=== PATIENT | female | born 1960 | race African-American/Black ===

== ENCOUNTER 2019-06-25 14:25 | Emergency (ER) | payer BC, OTHER ==
--- OUTSIDE RECORDS SUMMARY | 2019-06-25 14:28 | XMS REPORT | Continuity of Care Document ---
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 04/14/2018 [facility] [place] (current) use of [place] aspirin Morbid (severe) 04/14/2018 [facility] obesity due to [place] excess calories Syncope and 04/14/2018 [facility] [place] collapse [place] Gout, unspecified 04/14/2018 [place] Essential 04/14/2018 [place] (primary) [place] hypertension Body mass index 04/14/2018 [facility] (BMI) 60.0-69.9, [place] adult Type 2 diabetes 04/14/2018 [facility] mellitus without [place] complications Medications Medication Details Route Status Patient Ordering Order Source Instructions Provider Date Hydrochlorothiazide See Active 25 MG Oral Tablet Instructions 2018 Medical , # 30 tab, Group Refill(s) 2, TAKE 1 TABLET BY MOUTH EVERY MORNING, Pharmacy: [facility]/pharmacy #[id number] Hydrochlorothiazide 25 mg=1 tab, Active 25 MG Oral Tablet PO, QAM, # 2018 Medical 90 tab, 2 Group Refill(s), Pharmacy: [id number] Hydrochlorothiazide 25 mg=1 tab, No Longer 25 MG Oral Tablet PO, QAM, X Active 2018 Medical 30 day, # 30 Group tab, 6 Refill(s), Pharmacy: [facility]/pharmacy #[id number] carvedilol 3.125 mg, Inactive [place] Route: PO, 2018 [place] Drug form: TAB, Q12H, Dosing Weight 153.182, kg, Start date: 01/06/18 21:00:00 CDT, Duration: 30 day, Stop date: 02/05/18 9:00:00 CDT Aspirin 81 MG Enteric 81 mg=1 tab, No Longer [place] Coated Tablet PO, Daily, # Active 2017 [place] 30 tab, 3 Refill(s), Pharmacy: [facility]/pharmacy #[id number] Colchicine 0.6 MG 0.6 mg, 1 Inactive [place] Oral Tablet tab, Route: 2017 [place] PO, Drug form: TAB, Daily, Dosing Weight 153.182, kg, Start date: 01/06/18 9:00:00 CDT, Duration: 30 day, Stop date: 02/04/18 9:00:00 CDT Saline Flush 0.9% 10 ml, No Longer [place] Route: IVP, Active 2017 Drug Form: INJ, Dosing Weight 152.727, kg, Q12H, Start date: 01/05/18 21:00:00 CDT, Duration: 30 day, Stop date: 02/04/18 9:00:00 CDTNotes: (Same as: BD Posiflush) Colchicine 0.6 MG 0.6 mg=1 Active [place] Oral Tablet tab, PO, 2017 [place] Daily, at the first sign of a gout flare followed by 0.6 mg one hour later, 0 Refill(s) carvedilol 12.5 mg 12.5 mg=1 No Longer [place] oral tablet tab, PO, Active 2017 [place] Q12H, # 60 tab, 0 Refill(s) spironolactone 25 mg 25 mg=1 tab, No Longer [place] oral tablet PO, BID, # Active 2017 [place] 180 tab, 0 Refill(s) Saline Flush 0.9% 10 ml, No Longer [place] Route: IVP, 2017 Drug Form: INJ, Dosing Weight 152.727, kg, PRN, PRN Line Flush, Start date: 01/05/18 16:10:00 CDT, Duration: 30 day, Stop date: 02/04/18 16:09:00 CDTNotes: (Same as: BD Posiflush) Ondansetron 4 mg, 2 mL, No Longer [place] Route: IVP, 2017 Drug form: INJ, Q6H, Dosing Weight 152.727, kg, PRN Nausea & Vomiting, Start date: 01/05/18 16:08:00 CDT, Duration: 30 day, Stop date: 02/04/18 16:07:00 CDTNotes: (Same as: Maricruz) MEDICATION WASTE Product Size: 4 mg Product Wasted: ___ mg Acetaminophen 650 mg, 2 No Longer [place] tab, Route: Active 2017 [place] PO, Drug form: TAB, Q4H, Dosing Weight 152.727, kg, PRN Pain 1-3/Temp > 100.4 F, Start date: 01/05/18 16:08:00 CDT, Duration: 30 day, Stop date: 02/04/18 16:07:00 CDTNotes: Do not exceed 4 gm/day. (Same as: Tylenol) Ketorolac 30 mg, Inactive [place] Route: IVP, 2017 [facility] Drug form: INJ, ONCE, Dosing Weight 152.727, kg, Priority: STAT, Start date: 01/05/18 15:48:00 CDT, Stop date: 01/05/18 15:48:00 CDT Saline Flush 0.9% 10 mL, No Longer [place] Route: IVP, Active 2017 [facility] Drug Form: INJ, Dosing Weight 152.727, kg, PRN, PRN Line Flush, Start date: 01/05/18 12:26:00 CDT, Duration: 30 day, Stop date: 02/04/18 12:25:00 CDTNotes: (Same as: BD Posiflush) Allergies, Adverse Reactions, Alerts Substance Category Reaction Severity Reaction Status Date Comments Source type Reported sulfa Assertion Drug Active hives, drugs<sup>1 allergy itching, Medical </sup> swelling Group iodine Assertion Allergy to Drug Active sulfonamides allergy Medical (disorder) Group Immunizations No Data Provided for This Section Results Order Name Results Value Reference Date Interpretation Comments Source Range CHEM PANEL eGFR 74 01/06 Result Comment: The [place] eGFR is [place] calculated using the CKD-EPI formula. In most young, healthy individuals the eGFR will be >90 mL/min/1.73m2 . The eGFR declines with age. An eGFR of 60-89 may be normal in some populations, particularly the elderly, for whom the CKD-EPI formula has not been extensively validated. Use of the eGFR is not recommended in the following populations:< br/>
Eboni viduals with unstable creatinine concentration s, including patients and those with serious co-morbid conditions.<b r/>
Patie nts with extremes in muscle mass or diet.

The data above are obtained from the National Kidney Disease Education Program (NKDEP) which additionally recommends that when the eGFR is used in patients with extremes of body mass index for purposes of drug dosing, the eGFR should be multiplied by the estimated BMI. CHEM PANEL Calcium Lvl 8.6 8.5 - 10.5 01/06 [place] CHEM PANEL AGAP 12.0 10.0 - 01/06 [facility] 20.0 [place] CHEM PANEL CO2 25 24 - 32 01/06 [place] CHEM PANEL Chloride Lvl 105 95 - 109 01/06 [place] CHEM PANEL Potassium Lvl 4.0 3.5 - 5.1 01/06 [place] CHEM PANEL Glucose Lvl 111 70 - 99 01/06 [place] CHEM PANEL BUN 21 7 - 22 01/06 [place] CHEM PANEL Creatinine 0.98 0.50 - 01/06 MH Lvl 1.40 [place] CHEM PANEL Sodium Lvl 138 135 - 145 01/06 [place] HEMATOLOGY Segs 51.8 45.0 - 01/06 MH 75.0 [place] HEMATOLOGY Segs-Bands # 2.2 1.5 - 8.1 01/06 [place] HEMATOLOGY Basophils 0.2 0.0 - 1.0 01/06 [place] HEMATOLOGY Lymphocytes 40.9 20.0 - 01/06 MH 40.0 [place] HEMATOLOGY Eosinophils 0.6 0.0 - 4.0 01/06 [place] HEMATOLOGY Monocytes 6.5 2.0 - 12.0 01/06 [place] HEMATOLOGY Anisocyte 1+ None Seen 01/06 *ABN* /2017 [facility] (01/06/18 5:18 AM) Land HEMATOLOGY Basophils # 0.0 0.0 - 0.2 01/06 [place] HEMATOLOGY Lymphocytes # 1.7 1.0 - 5.5 01/06 [place] HEMATOLOGY Eosinophils # 0.0 0.0 - 0.5 01/06 [place] HEMATOLOGY Monocytes # 0.3 0.0 - 0.8 01/06 [place] HEMATOLOGY MPV 10.1 7.4 - 10.4 01/06 [place] HEMATOLOGY Hct 31.5 36.0 - 01/06 MH 48.0 [place] HEMATOLOGY Hgb 9.9 12.0 - 01/06 MH 16.0 [place] HEMATOLOGY MCHC 31.4 32.0 - 01/06 MH 36.0 [place] HEMATOLOGY MCH 23.9 27.0 - 01/06 MH 31.0 [place] HEMATOLOGY Platelet 281 133 - 450 01/06 [place] HEMATOLOGY RDW 20.7 11.5 - 01/06 MH 14.5 [place] HEMATOLOGY MCV 76.2 80.0 - 01/06 MH 98.0 [place] HEMATOLOGY RBC 4.14 4.20 - 01/06 MH 5.40 [place] HEMATOLOGY WBC 4.2 3.7 - 10.4 01/06 [place] CARDIAC Troponin-I <0.02 0.00 - 01/06 [facility] 0. [place] CARDIAC Total CK 63 12 - 191 01/06 [facility] [place] CARDIAC CK MB 0.6 0.5 - 3.6 01/05 [facility] /2017 [place] CARDIAC CK MB Index 0.5 0.0 - 2.5 01/05 [facility] [place] CARDIAC Troponin-I <0.02 0.00 - 01/05 [facility] 0. [place] CARDIAC Total CK 125 12 - 191 01/05 [facility] [place] CARDIAC BNP 65 <=100 01/05 [facility] pg/mL [place] URINE AND UA <=1.0 mg/dL 0.1 - 1.0 01/05 [facility] Urobilinogen [place] URINE AND UA Hyph Yeast Occasional None Seen 01/05 [facility] *ABN* /2017 [facility] (01/05/18 12:42 PM) [place] URINE AND UA Hyal Cast 9 0 - 2 01/05 [facility] [place] URINE AND UA Mucus Moderate None Seen 01/05 [facility] /LPF /LPF [place] URINE AND UA Bacteria Occasional None Seen 01/05 [facility] /HPF /HPF /2017 [place] URINE AND UA RBC 2 0 - 2 01/05 [facility] [place] URINE AND UA Blood Negative Negative 01/05 [facility] (01/05/18 12:42 PM) [place] URINE AND UA Leuk Est Trace Negative 01/05 [facility] *ABN* [place] (01/05/18 12:42 PM) [place] URINE AND UA Nitrite Negative Negative 01/05 [facility] (01/05/18 12:42 PM) [place] URINE AND UA Bili Negative Negative 01/05 [facility] *NA* [place] (01/05/18 12:42 PM) [place] URINE AND UA Ketones Negative Negative 01/05 [facility] mg/dL mg/dL [place] URINE AND UA WBC 5 0 - 5 01/05 [facility] [place] URINE AND UA Sq Epi Many /LPF Few /LPF 01/05 [facility] /2017 [place] URINE AND UA Spec Grav 1.021 <=1.030 01/05 [facility] [place] URINE AND UA Turbidity Marked Clear 01/05 [facility] *ABN* /2017 [place] (01/05/18 12:42 PM) [place] URINE AND UA Color Dark Yellow Yellow 01/05 [facility] *NA* [place] (01/05/18 12:42 PM) [place] URINE AND UA Glucose Negative Negative 01/05 [facility] mg/dL mg/dL [place] URINE AND UA Protein 30 mg/dL Negative 01/05 [facility] mg/dL /2017 [place] URINE AND UA pH 5.0 5.0 - 8.0 01/05 [facility] [place] Culture: 10,000 - 01/05 Urine 50,000 /2017 [facility] CFU/mL [place] CHEM PANEL eGFR 55 01/05 Result Comment: The [place] eGFR is [place] calculated using the CKD-EPI formula. In most young, healthy individuals the eGFR will be >90 mL/min/1.73m2 . The eGFR declines with age. An eGFR of 60-89 may be normal in some populations, particularly the elderly, for whom the CKD-EPI formula has not been extensively validated. Use of the eGFR is not recommended in the following populations:< br/>
Eboni viduals with unstable creatinine concentration s, including patients and those with serious co-morbid conditions.<b r/>
Patie nts with extremes in muscle mass or diet.

The data above are obtained from the National Kidney Disease Education Program (NKDEP) which additionally recommends that when the eGFR is used in patients with extremes of body mass index for purposes of drug dosing, the eGFR should be multiplied by the estimated BMI. CHEM PANEL Bili Total 0.4 0.2 - 1.3 01/05 [place] CHEM PANEL Alk Phos 91 39 - 136 01/05 [place] CHEM PANEL ALT 21 0 - 65 01/05 [place] CHEM PANEL AST 21 0 - 37 01/05 [place] CHEM PANEL Albumin Lvl 3.4 3.5 - 5.0 01/05 [place] CHEM PANEL Chloride Lvl 104 95 - 109 01/05 [place] CHEM PANEL Total Protein 8.4 6.4 - 8.4 01/05 [place] CHEM PANEL Calcium Lvl 8.6 8.5 - 10.5 01/05 [place] CHEM PANEL CO2 28 24 - 32 01/05 [place] CHEM PANEL Glucose Lvl 82 70 - 99 01/05 [place] CHEM PANEL Creatinine 1.11 0.50 - 01/05 MH Lvl 1.40 [place] CHEM PANEL Sodium Lvl 138 135 - 145 01/05 [place] CHEM PANEL Potassium Lvl 4.0 3.5 - 5.1 01/05 [place] CHEM PANEL BUN 15 7 - 22 01/05 [place] CHEM PANEL AGAP 10.0 10.0 - 01/05 MH 20.0 [place] CHEM PANEL A/G Ratio 0.7 0.7 - 1.6 01/05 [place] CHEM PANEL Globulin 5.0 2.7 - 4.2 01/05 [place] CHEM PANEL B/C Ratio 14 6 - 25 01/05 [place] HEMATOLOGY MCHC 31.0 32.0 - 01/05 MH 36.0 [place] HEMATOLOGY MCH 23.6 27.0 - 01/05 MH 31.0 [place] HEMATOLOGY MCV 76.4 80.0 - 01/05 [facility] 98.0 [place] HEMATOLOGY RBC 4.50 4.20 - 01/05 MH 5.40 /2017 [place] HEMATOLOGY Hct 34.4 36.0 - 01/05 MH 48.0 [place] HEMATOLOGY Hgb 10.6 12.0 - 01/05 MH 16.0 [place] HEMATOLOGY MPV 10.9 7.4 - 10.4 01/05 [place] HEMATOLOGY Platelet 328 133 - 450 01/05 [place] HEMATOLOGY RDW 20.8 11.5 - 01/05 14.5 [place] HEMATOLOGY WBC 6.9 3.7 - 10.4 01/05 [place] HEMATOLOGY Anisocyte 1+ None Seen 01/05 *ABN* /2017 [place] (01/05/18 12:31 PM) Land HEMATOLOGY Eosinophils # 0.0 0.0 - 0.5 01/05 [place] HEMATOLOGY Basophils # 0.0 0.0 - 0.2 01/05 [place] HEMATOLOGY Monocytes # 0.5 0.0 - 0.8 01/05 [place] HEMATOLOGY Lymphocytes # 1.8 1.0 - 5.5 01/05 [place] HEMATOLOGY Segs-Bands # 4.6 1.5 - 8.1 01/05 [place] HEMATOLOGY Monocytes 6.7 2.0 - 12.0 01/05 [place] HEMATOLOGY Lymphocytes 26.2 20.0 - 01/05 40.0 [place] HEMATOLOGY Basophils 0.3 0.0 - 1.0 01/05 [place] HEMATOLOGY Eosinophils 0.2 0.0 - 4.0 01/05 [place] HEMATOLOGY Segs 66.6 45.0 - 01/05 75.0 [place] Pathology Reports No Data Provided for This Section Diagnostic Reports Report Value Date Source Brain wo contrast MRI 01/05/2018 [facility] Sex: Female. : 1960. Technique: Sagittal, axial and coronal sequences through the brain with T1, T2, FLAIR, GRE and diffusion weighting on the high field magnet. Clinical History: Syncope - NO. Comparison studies: CT scan 01/05/2018 at 1239. The diffusion weighted exam shows no evidence for restricted diffusion or acute infarct. There is mild periventricular white matter intensity including in the periatrial regions. Could not exclude early demyelinating disease. Other vasculopathy possibility but not acute without evidence for diffusion changes. There is no intracranial mass or mass effect. There is no midline shift. There is no extra-axial fluid collection. Ventricles, subarachnoid spaces and sulci are normal. There is no evidence for hydrocephalus. The posterior fossa is intact. There is normally maintained signal void in the major vasculature. The sella and suprasellar cistern are normal. Paranasal sinuses are aerated. Orbits are normal and symmetric. IMPRESSION: 1. Mild white matter signal intensities, correlate with MRI when disease versus chronic ischemia including vasculitis. Brain wo contrast CT PATIENT NAME: JENNIFER CASH 01/05/2018 [place] : 1960; Age: 57 years y/o Female MR: [id number] STUDY: Brain wo contrast CT 01/05/2018 12:26 PM CDT ORDERING PHYSICIAN: Sally Pederson CLINICAL INDICATION: - syncope; COMPARISON: None TECHNIQUE: Noncontrast images of the brain are obtained from the skull base to the vertex. Axial, sagittal, and coronal images are interpreted. DLP: 559 mGy -cm This exam was performed according to our departmental dose-optimization protocol, which includes automated exposure control, adjustment of the mA and/ or kV according to patient size and/or use of iterative reconstruction technique. FINDINGS: BRAIN PARENCHYMA: There is no evidence of cerebral edema, mass, mass effect, hemorrhage, or recent cortical infarct. The brain volume is age appropriate. The garcia-white distinction is maintained. CEREBELLOPONTINE REGIONS AND SKULL BASE: The cerebellopontine angles appear unremarkable. No skull base abnormality is seen. VENTRICLES/SULCI/CISTERNS: The ventricles are normal in size and configuration. The basal cisterns are patent. ORBITS, VISUALIZED PARANASAL SINUSES AND MASTOIDS: Paranasal sinuses are clear. The mastoid air cells are clear. No orbital pathology is seen. IMPRESSION: No acute intracranial findings Chest 1view DX SINGLE VIEW CHEST X-RAY. 01/05/2018 12:26 PM CDT 01/05/2018 [place] INDICATION: - syncope TECHNIQUE: Single frontal view of the chest was performed. COMPARISON: None FINDINGS: There is mild central venous congestion. No significant effusions. No evidence of pneumothorax. The cardiomediastinal silhouette is mildly enlarged. Osseous structures show no significant finding. The visualized abdomen is unremarkable. IMPRESSION: Mild central venous congestion with mild cardiomegaly. Consultation Notes No Data Provided for This Section Discharge Summaries No Data Provided for This Section History and Physicals No Data Provided for This Section Vital Signs Vital Sign Value Date Comments Source Height 172.72 cm 01/14/2018 [facility] Heart Rate 79 01/14/2018 [facility] Systolic (mm Hg) 154 01/14/2018 [facility] Diastolic (mm Hg) 98 01/14/2018 [facility] Temperature Oral (F) 98.1 F 01/06/2018 [facility] [place] Heart Rate 73 01/06/2018 [facility] [place] Respitory Rate 18 01/06/2018 [facility] [place] Systolic (mm Hg) 145 01/06/2018 [facility] [place] Diastolic (mm Hg) 77 01/06/2018 [place] Temperature Oral (F) 98.0 F 01/06/2018 [place] Heart Rate 68 01/06/2018 [facility] [place] Systolic (mm Hg) 145 01/06/2018 [facility] [place] Diastolic (mm Hg) 81 01/06/2018 [place] Respitory Rate 18 01/06/2018 [place] Respitory Rate 18 01/06/2018 [place] Temperature Oral (F) 98 F 01/06/2018 [place] Heart Rate 72 01/06/2018 [facility] [place] Systolic (mm Hg) 134 01/06/2018 [facility] [place] Diastolic (mm Hg) 85 01/06/2018 [place] BMI Calculated 51.35 01/05/2018 [place] Height 172.72 cm 01/05/2018 [place] Weight 153.182 01/05/2018 [place] Weight 152.727 01/05/2018 [place] Encounters Location Location Encounter Encounter Reason Attending ADM DC Status Source Details Type Number For Provider Date Date Visit [facility] [id number] No 01/05 01/06 [place] [facility] [place] [facility] [id number] MAJID JULIAN 01/14 [facility] Outpatient [id number] Majid Julian 01/14 01/15 Cardiology [facility] [place] [facility] Outpatient [id number] MAJID JULIAN 02/10 [facility] [place] [facility] Ambulatory [id number] Majid Julian 02/10 02/10 Cardiology [facility] [place] [facility] Phone [id number] 03/15 03/17 Cardiology Message [facility] [place] [facility] Phone [phone] 06/07 06/09 Cardiology Message [facility] [place] [facility] Procedures No Data Provided for This Section Assessment and Plan Assessment and Plan Date Source Extracted from:Title: History and Physical 01/06/2018 [place] Author: Twyla Maciel MD Date: 01/05/18 57-year-old female 1. Acutesyncopal episode. Etiology remains unclear. Vessels vagal versus orthostatichypotension. Patient has multiple risk factors including hypertensionobesityandhyperlipidemiawhich puts her at risk of developing TIA or stroke. CT of the headwas unremarkable. Will proceed with MRI of thebrain to rule outacute intracranial pathology or ischemic changes. Cardiology consultation be requested to further a ssist with evaluation. Will monitor on telemetry overnight. 2. Hypertension,blood pressure fairly controlled here. Will resume her home medicationand use IV hydralazineas needed Morbid obesity, BMI61.4. Patient has been counseled 3. Diabetes mellitus type 2, will start patient on sliding scale insulin and monitor Accu-Cheks. Continue tight glycemic control 4. Chronic lower back pain. Continue present measures. Plan of Care No Data Provided for This Section Social History Social History Date Source Social History TypeResponse 01/05/2018 Medical [facility] Substance Abuse Use: None. Alcohol Never Smoking Status Never smoker; Previous treatment: None; Ready to change: No; Concerns about tobacco use in household: No; Exposure to Tobacco Smoke None; Cigarette Smoking Last 365 Days No; Reg Smoking Cessation Counseling No entered on: 01/14/18 Social History TypeResponse 01/05/2018 [facility] Substance Abuse Use: None. Alcohol Never Smoking Status Never smoker; Previous treatment: None; Ready to change: No; Concerns about tobacco use in household: No; Exposure to Tobacco Smoke None; Cigarette Smoking Last 365 Days No; Reg Smoking Cessation Counseling No entered on: 01/14/18 Family History No Data Provided for This Section Advance Directives No Data Provided for This Section Functional Status No Data Provided for This Section
--- OUTSIDE RECORDS SUMMARY | 2019-06-25 14:28 | XMS REPORT | Summary of Care ---
:1960 Author Organization [facility] Cardiology [place] Address [address], [address] [place] [address] Encounter HQ [place]_gordo(FIN) [id number] Date(s): 06/07/18 - 06/08/18 [facility] Cardiology [place] [address], [address] [place] [address] Vital Signs No data available for this section Problem List Condition Effective Dates Status Health Status Informant Morbid obesity(Confirmed) Active Allergies, Adverse Reactions, Alerts Substance Reaction Severity Status sulfa drugs1 Active iodine Allergy to sulpha drugs Active 1hives, itching, swelling Medications hydrochlorothiazide 25 mg oral tablet See Instructions, # 30 tab, Refill(s) 2, TAKE 1 TABLET BY MOUTH EVERY MORNING, Pharmacy: [facility]/pharmacy #[id number] Start Date: 06/07/18 Status: Ordered Results No data available for this section Immunizations No data available for this section Procedures No data available for this section Social History Social History Type Response Substance Abuse Use: None. Alcohol Never Smoking Status Never smoker; Previous treatment: None; Ready to change: No; Concerns about tobacco use in household: No; Exposure to Tobacco Smoke None; Cigarette Smoking Last 365 Days No; Reg Smoking Cessation Counseling No entered on: 01/14/18 Assessment and Plan No data available for this section
--- OUTSIDE RECORDS SUMMARY | 2019-06-25 14:28 | XMS REPORT | Summary of Care ---
:1960 Author Organization [facility] Cardiology [place] Address [address] [place] [address], [address] [place] [address] Encounter HQ Lucinda(FIN) [id number] Date(s): 03/15/18 - 03/16/18 [facility] Cardiology [place] [address] [address], [address] [place] [address] Vital Signs No data available for this section Problem List Condition Effective Dates Status Health Status Informant Morbid obesity(Confirmed) Active Allergies, Adverse Reactions, Alerts Substance Reaction Severity Status sulfa drugs1 Active iodine Allergy to sulpha drugs Active 1hives, itching, swelling Medications hydrochlorothiazide 25 mg oral tablet 25 mg=1 tab, PO, QAM, # 90 tab, 2 Refill(s), Pharmacy: [facility]/pharmacy #[id number] Start Date: 03/16/18 Status: Ordered Results No data available for [...]
--- OUTSIDE RECORDS SUMMARY | 2019-06-25 14:28 | XMS REPORT | Summary of Care ---
:1960 Author Organization [facility] Cardiology [place] Address [address] [place] [address]- Encounter HQ Herminiar_gordo(FIN) [id number] Date(s): 02/10/18 - 02/10/18 [facility] Cardiology [place] [address] [place] [phone] Attending Physician: Alexis Antony MD Vital Signs No data available for this section Problem List Condition Effective Dates Status Health Status Informant Morbid obesity(Confirmed) Active Allergies, Adverse Reactions, Alerts Substance Reaction Severity Status sulfa drugs1 Active iodine Allergy to sulpha drugs Active 1hives, itching, swelling Medications No data available for this section Results No data available for this section [...]
--- OUTSIDE RECORDS SUMMARY | 2019-06-25 14:29 | XMS REPORT ---
:1960 Author Organization [facility] Address [address] [place] [address] Dr. Jaime [address] [place] [id number] Care Team Providers Name Role Phone Unavailable Unavailable Unavailable Problems This patient has no known problems. Allergies, Adverse Reactions, Alerts This patient has no known allergies or adverse reactions. Medications This patient has no known medications.
--- OUTSIDE RECORDS SUMMARY | 2019-06-25 14:29 | XMS REPORT | Summary of Care ---
:1960 Author Organization [facility] [place] [facility] [place] [address] [place] [phone] Encounter HQ Lucinda(FIN) [id number] Date(s): 01/14/18 - 01/14/18 [facility] Cardiology [address] [address] [phone] Discharge Disposition: Home or Self Care Attending Physician: Alexis Antony MD Vital Signs Most recent to oldest [Reference Range]: 1 Height 172.72 cm (01/14/18 11:23 AM) Blood Pressure [90-140/60-90 mmHg] 154/98 mmHg *HI* (01/14/18 11:23 AM) Peripheral Pulse Rate [60-100 bpm] 79 bpm (01/14/18 11:23 AM) Problem List Condition Effective Dates Status Health Status Informant Morbid obesity(Confirmed) Active Allergies, Adverse Reactions, Alerts Substance Reaction Severity Status sulfa drugs1 Active iodine Allergy to sulpha drugs Active 1hives, itching, swelling Medications hydrochlorothiazide 25 mg oral tablet 25 mg=1 tab, PO, QAM, X 30 day, # 30 tab, 6 Refill(s), Pharmacy: [facility]/pharmacy # [id number] Start Date: 01/14/18 Stop Date: 03/16/18 Status: Completed Results No data available for this section [...]
--- OUTSIDE RECORDS SUMMARY | 2019-06-25 14:29 | XMS REPORT | Summary of Care ---
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 (Final) - Hypotension, unspecified (Final) - 01/12/18 Morbid (severe) obesity due to excess calories (Final) - Syncope and collapse (Final) - Gout, unspecified (Final) - Essential (primary) hypertension (Final) - Body mass index (BMI) 60.0-69.9, adult (Final) - Type 2 diabetes mellitus without complications (Final) - Discharge Disposition: Home or Self Care Attending Physician: Twyla Maciel MD Admitting Physician: Twyla Maciel MD Vital Signs Most recent to oldest 1 2 3 [Reference Range]: Height 172.72 cm (01/05/18 6:11 PM) Temperature Oral [96.4-99.1 98.1 DegF 98.0 DegF 98 DegF DegF] (01/06/18 11:58 AM) (01/06/18 7:53 AM) (01/06/18 3:51 AM) Blood Pressure [90-140/60-90 145/77 mmHg 145/81 mmHg 134/85 mmHg mmHg] *HI* *HI* (01/06/18 3:51 AM) (01/06/18 11:58 AM) (01/06/18 7:53 AM) Respiratory Rate [14-20 18 BRMIN 18 BRMIN 18 BRMIN BRMIN] (01/06/18 11:58 AM) (01/06/18 7:53 AM) (01/06/18 3:51 AM) Peripheral Pulse Rate [60-100 73 bpm 68 bpm 72 bpm bpm] (01/06/18 11:58 AM) (01/06/18 7:53 AM) (01/06/18 3:51 AM) Weight 153.182 kg 152.727 kg (01/05/18 6:11 PM) (01/05/18 11:34 AM) Body Mass Index 51.35 m2 (01/05/18 6:11 PM) Problem List Condition Effective Dates Status Health Status Informant Morbid obesity(Confirmed) Active Allergies, Adverse Reactions, Alerts Substance Reaction Severity Status sulfa drugs1 Active iodine Allergy to sulpha drugs Active 1hives, itching, swelling Medications acetaminophen 650 mg, 2 tab, Route: PO, Drug form: TAB, Q4H, Dosing Weight 152.727, kg, PRN Pain 1-3/Temp > 100.4 F, Start date: 01/05/18 16:08:00 CDT, Duration: 30 day , Stop date: 02/04/18 16:07:00 CDT Notes: Do not exceed 4 gm/day. (Same as: Tylenol) Start Date: 01/05/18 Stop Date: 01/06/18 Status: Discontinuedaspirin 81 mg tablet, enteric coated 81 mg=1 tab, PO, Daily, # 30 tab, 3 Refill(s), Pharmacy: [facility]/pharmacy #[id number] Start Date: 01/06/18 Stop Date: 01/14/18 Status: Discontinuedcarvedilol 3.125 mg, Route: PO, Drug form: TAB, Q12H, Dosing Weight 153.182, kg, Start date : 01/06/18 21:00:00 CDT, Duration: 30 day, Stop date: 02/05/18 9:00:00 CDT Start Date: 01/06/18 Stop Date: 01/06/18 Status: Canceledcarvedilol 12.5 mg oral tablet 12.5 mg=1 tab, PO, Q12H, # 60 tab, 0 Refill(s) Start Date: 01/05/18 Stop Date: 01/06/18 Status: Discontinuedcolchicine 0.6 mg oral tablet 0.6 mg, 1 tab, Route: PO, Drug form: TAB, Daily, Dosing Weight 153.182, kg, Start date: 01/06/18 9:00:00 CDT, Duration: 30 day, Stop date: 02/04/18 9:00:00 CDT Start Date: 01/06/18 Stop Date: 01/06/18 Status: Discontinuedcolchicine 0.6 mg oral tablet 0.6 mg=1 tab, PO, Daily, at the first sign of a gout flare followed by 0.6 mg one hour later, 0 Refill(s) Start Date: 01/05/18 Status: OrderedketOROLAC 30 mg, Route: IVP, Drug form: INJ, ONCE, Dosing Weight 152.727, kg, Priority: STAT, Start date: 01/05/18 15:48:00 CDT, Stop date: 01/05/18 15:48:00 CDT Start Date: 01/05/18 Stop Date: 01/05/18 Status: Completedondansetron 4 mg, 2 mL, Route: IVP, Drug form: INJ, Q6H, Dosing Weight 152.727, kg, PRN Nausea & Vomiting, Start date: 01/05/18 16:08:00 CDT, Duration: 30 day, Stop date: 02/04/18 16:07:00 CDT Notes: (Same as: Mariefran) MEDICATION WASTE Product Size: 4 mgProduct Wasted: ___ mg Start Date: 01/05/18 Stop Date: 01/06/18 Status: DiscontinuedSaline Flush 0.9% 10 mL, Route: IVP, Drug Form: INJ, Dosing Weight 152.727, kg, PRN, PRN Line Flush, Start date: 01/05/18 12:26:00 CDT, Duration: 30 day, Stop date: 02/04/18 12:25:00 CDT Notes: (Same as: BD Posiflush) Start Date: 01/05/18 Stop Date: 01/06/18 Status: DiscontinuedSaline Flush 0.9% 10 ml, Route: IVP, Drug Form: INJ, Dosing Weight 152.727, kg, Q12H, Start date: 01/05/18 21:00:00 CDT, Duration: 30 day, Stop date: 02/04/18 9:00:00 CDT Notes: (Same as: BD Posiflush) Start Date: 01/05/18 Stop Date: 01/06/18 Status: DiscontinuedSaline Flush 0.9% 10 ml, Route: IVP, Drug Form: INJ, Dosing Weight 152.727, kg, PRN, PRN Line Flush, Start date: 01/05/18 16:10:00 CDT, Duration: 30 day, Stop date: 02/04/18 16:09:00 CDT Notes: (Same as: BD Posiflush) Start Date: 01/05/18 Stop Date: 01/06/18 Status: Discontinuedspironolactone 25 mg oral tablet 25 mg=1 tab, PO, BID, # 180 tab, 0 Refill(s) Start Date: 01/05/18 Stop Date: 01/06/18 Status: Discontinued Results ELECTROLYTES Most recent to oldest [Reference Range]: 1 2 Sodium Lvl [135-145 mEq/L] 138 mEq/L 138 mEq/L (01/06/18 5:18 AM) (01/05/18 12:31 PM) Potassium Lvl [3.5-5.1 mEq/L] 4.0 mEq/L 4.0 mEq/L (01/06/18 5:18 AM) (01/05/18 12:31 PM) Chloride Lvl [95-109 mEq/L] 105 mEq/L 104 mEq/L (01/06/18 5:18 AM) (01/05/18 12:31 PM) CO2 [24-32 mEq/L] 25 mEq/L 28 mEq/L (01/06/18 5:18 AM) (01/05/18 12:31 PM) AGAP [10.0-20.0 mEq/L] 12.0 mEq/L 10.0 mEq/L (01/06/18 5:18 AM) (01/05/18 12:31 PM) CHEM PANEL Most recent to oldest [Reference Range]: 1 2 Creatinine Lvl [0.50-1.40 mg/dL] 0.98 mg/dL 1.11 mg/dL (01/06/18 5:18 AM) (01/05/18 12:31 PM) eGFR 74 mL/min/1.73m2 1 55 mL/min/1.73m2 2 *NA* *NA* (01/06/18 5:18 AM) (01/05/18 12:31 PM) BUN [7-22 mg/dL] 21 mg/dL 15 mg/dL (01/06/18 5:18 AM) (01/05/18 12:31 PM) B/C Ratio [6-25] 14 (01/05/18 12:31 PM) Glucose Lvl [70-99 mg/dL] 111 mg/dL 82 mg/dL *HI* (01/05/18 12:31 PM) (01/06/18 5:18 AM) Total Protein [6.4-8.4 g/dL] 8.4 g/dL (01/05/18:31 PM) Albumin Lvl [3.5-5.0 g/dL] 3.4 g/dL *LOW* (01/05/18: PM) Globulin [2.7-4.2 g/dL] 5.0 g/dL *HI* (01/05/18 12:31 PM) A/G Ratio [0.7-1.6] 0.7 (01/05/18 12:31 PM) Calcium Lvl [8.5-10.5 mg/dL] 8.6 mg/dL 8.6 mg/dL (01/06/18 5:18 AM) (01/05/18 12:31 PM) ALT [0-65 unit/L] 21 unit/L (01/05/18 12:31 PM) AST [0-37 unit/L] 21 unit/L (01/05/18 12:31 PM) Alk Phos [39-136 unit/L] 91 unit/L (01/05/18 12:31 PM) Bili Total [0.2-1.3 mg/dL] 0.4 mg/dL (01/05/18 12:31 PM) 1Result Comment: The eGFR is calculated using the CKD-EPI formula. In most young , healthy individualsthe eGFR will be >90 mL/min/1.73m2. The eGFR declines with age. An eGFR of 60-89 may be normal insome populations, particularly the elderly, for whom the CKD-EPI formula has not been extensively validated. Use of the eGFR is not recommended in the following populations: Individuals with unstable creatinine concentrations, including patients and those with serious co-morbid conditions. Patients with extremes in muscle mass or diet. The data above are obtained from the National Kidney Disease Education Program ( NKDEP) which additionally recommends that when the eGFR is used in patients with extremes of body mass index for purposesof drug dosing, the eGFR should be multiplied by the estimated BMI.2Result Comment: The eGFR is calculated using the CKD-EPI formula. In most young, healthy individualsthe eGFR will be >90 mL/min/1.73m2. The eGFR declines with age. An eGFR of 60-89 may be normal insome populations, particularly the elderly, for whom the CKD-EPI formula has not been extensively validated. Use of the eGFR is not recommended in the following populations: Individuals with unstable creatinine concentrations, including patients and those with serious co-morbid conditions. Patients with extremes in muscle mass or diet. The data above are obtained from the National Kidney Disease Education Program ( NKDEP) which additionally recommends that when the eGFR is used in patients with extremes of body mass index for purposesof drug dosing, the eGFR should be multiplied by the estimated BMI.CARDIAC ENZYMES Most recent to oldest [Reference Range]: 1 2 Total CK [12-191 unit/L] 63 unit/L 125 unit/L (01/05/18 11:39 PM) (01/05/18 6:35 PM) CK MB [0.5-3.6 ng/mL] 0.6 ng/mL (01/05/18 6:35 PM) CK MB Index [0.0-2.5] 0.5 (01/05/18 6:35 PM) Troponin-I [0.00-0.40 ng/mL] <0.02 ng/mL <0.02 ng/mL (01/05/18 11:39 PM) (01/05/18 6:35 PM) BNP [<=100 pg/mL] 65 pg/mL (01/05/18 2:28 PM) URINE AND STOOL Most recent to oldest [Reference Range]: 1 2 UA Turbidity [Clear] Marked *ABN* (01/05/18 12:42 PM) UA Color [Yellow] Dark Yellow *NA* (01/05/18 12:42 PM) UA pH [5.0-8.0] 5.0 (01/05/18 12:42 PM) UA Spec Grav [<=1.030] 1.021 (01/05/18 12:42 PM) UA Glucose [Negative mg/dL] Negative mg/dL *NA* (01/05/18 12:42 PM) UA Blood [Negative] Negative (01/05/18 12:42 PM) UA Ketones [Negative mg/dL] Negative mg/dL *NA* (01/05/18 12:42 PM) UA Protein [Negative mg/dL] 30 mg/dL *ABN* (01/05/18 12:42 PM) UA Urobilinogen [0.1-1.0 mg/dL] <=1.0 mg/dL *NA* (01/05/18 12:42 PM) UA Bili [Negative] Negative *NA* (01/05/18 12:42 PM) UA Leuk Est [Negative] Trace *ABN* (01/05/18 12:42 PM) UA Nitrite [Negative] Negative (01/05/18 12:42 PM) UA WBC [0-5 /HPF] 5 /HPF (01/05/18 12:42 PM) UA RBC [0-2 /HPF] 2 /HPF (01/05/18 12:42 PM) UA Bacteria [None Seen /HPF] Occasional /HPF *NA* (01/05/18 12:42 PM) UA Sq Epi [Few /LPF] Many /LPF *ABN* (01/05/18 12:42 PM) UA Hyal Cast [0-2 /LPF] 9 /LPF *HI* (01/05/18 12:42 PM) UA Mucus [None Seen /LPF] Moderate /LPF *ABN* (01/05/18 12:42 PM) UA Hyph Yeast [None Seen] Occasional *ABN* (01/05/18 12:42 PM) HEMATOLOGY Most recent to oldest [Reference Range]: 1 2 WBC [3.7-10.4 K/CMM] 4.2 K/CMM 6.9 K/CMM (01/06/18 5:18 AM) (01/05/18 12:31 PM) RBC [4.20-5.40 M/CMM] 4.14 M/CMM 4.50 M/CMM *LOW* (01/05/18 12:31 PM) (01/06/18:18 AM) Hgb [12.0-16.0 g/dL] 9.9 g/dL 10.6 g/dL *LOW* *LOW* (01/06/18 5:18 AM) (01/05/18 12:31 PM) Hct [36.0-48.0 %] 31.5 % 34.4 % *LOW* *LOW* (01/06/18:18 AM) (01/05/18:31 PM) MCV [80.0-98.0 fL] 76.2 fL 76.4 fL *LOW* *LOW* (01/06/18:18 AM) (01/05/18 PM) MCH [27.0-31.0 pg] 23.9 pg 23.6 pg *LOW* *LOW* (01/06/18:18 AM) (01/05/18:31 PM) MCHC [32.0-36.0 g/dL] 31.4 g/dL 31.0 g/dL *LOW* *LOW* (01/06/18:18 AM) (01/05/18:31 PM) RDW [11.5-14.5 %] 20.7 % 20.8 % *HI* *HI* (01/06/18:18 AM) (01/05/18:31 PM) MPV [7.4-10.4 fL] 10.1 fL 10.9 fL (01/06/18:18 AM) *HI* (01/05/18:31 PM) Platelet [133-450 K/CMM] 281 K/CMM 328 K/CMM (01/06/18 5:18 AM) (01/05/18 12:31 PM) Segs [45.0-75.0 %] 51.8 % 66.6 % (01/06/18 5:18 AM) (01/05/18 12:31 PM) Lymphocytes [20.0-40.0 %] 40.9 % 26.2 % *HI* (3/21/18 12:31 PM) (01/06/18 5:18 AM) Monocytes [2.0-12.0 %] 6.5 % 6.7 % (01/06/18 5:18 AM) (01/05/18 12:31 PM) Eosinophils [0.0-4.0 %] 0.6 % 0.2 % (01/06/18 5:18 AM) (01/05/18 12:31 PM) Basophils [0.0-1.0 %] 0.2 % 0.3 % (01/06/18 5:18 AM) (01/05/18 12:31 PM) Segs-Bands # [1.5-8.1 K/CMM] 2.2 K/CMM 4.6 K/CMM (01/06/18 5:18 AM) (01/05/18 12:31 PM) Lymphocytes # [1.0-5.5 K/CMM] 1.7 K/CMM 1.8 K/CMM (01/06/18 5:18 AM) (01/05/18 12:31 PM) Monocytes # [0.0-0.8 K/CMM] 0.3 K/CMM 0.5 K/CMM (01/06/18 5:18 AM) (01/05/18 12:31 PM) Eosinophils # [0.0-0.5 K/CMM] 0.0 K/CMM 0.0 K/CMM (01/06/18 5:18 AM) (01/05/18 12:31 PM) Basophils # [0.0-0.2 K/CMM] 0.0 K/CMM 0.0 K/CMM (01/06/18 5:18 AM) (01/05/18 12:31 PM) Anisocyte [None Seen] 1+ 1+ *ABN* *ABN* (01/06/18 5:18 AM) (01/05/18 12:31 PM) Microbiology Reports TEST:Culture: Urine STATUS:Auth (Verified) BODY SITE: SOURCE:Urine, Clean Catch COLLECTED DATE/TIME:01/05/18 12:42 PMFINAL REPORT10,000 - 50,000 CFU/mL Skin Keren Immunizations No data available for this section [...] No entered on: 01/14/18 Assessment and Plan Extracted from: Title: History and Physical Author: Twyla Maciel MD Date: 01/05/18 57-year-old female 1. Acutesyncopal episode. Etiology remains unclear. Vessels vagal versus orthostatichypotension. Patient has multiple risk factors including hypertensionobesityandhyperlipidemiawhich puts her at risk ofdeveloping TIA or stroke. CT of the headwas unremarkable. Will proceed with MRI of thebrain to rule outacute intracranial pathology or ischemic changes. Cardiology cons ultation be requested to further assist with evaluation. Will monitor on telemetry overnight. 2. Hypertension,blood pressure fairly controlled here. Will resume her home medicationand use IV hydralazineas needed Morbid obesity, BMI61.4. Patient has been counseled 3. Diabetes mellitus type 2, will start patient on sliding scale insulin and monitor Accu-Cheks. Continue tight glycemic control 4. Chronic lower back pain. Continue present measures.
[2019-06-25] MEDS ORDERED: FENTANYL CITR 100 MCG/2 ML ONE (15:31)
--- NOTE | 2019-06-25 16:49 | EDPHYS ---
Physician Documentation [facility] Name: Elizabeth Madrigal Age: 58 yrs Sex: Female : 1960 Arrival Date: 06/25/2019 Time: 14:28 Bed 24 Private MD: ED Physician Jesus Manuel Bueno HPI: 06/25 23:56 This 58 yrs old Black Female presents to ER via Ambulatory with complaints of Feet snw Swelling - Gout. 23:56 The patient presents with pain, that is acute. The complaints affect the left foot and snw lateral aspect of left foot. Context: The problem was sustained at home, resulted from a chronic condition, the patient can partially bear weight, the patient is able to ambulate, can ambulate using a cane. Onset: The symptoms/episode began/occurred suddenly, 2 day(s) ago, and became persistent. Associated signs and symptoms: The patient has no apparent associated signs or symptoms. Severity of symptoms: At their worst the symptoms were moderate. The patient has experienced similar episodes in the past, multiple times, and the symptoms today are exactly the same. It is unknown whether or not the patient has recently seen a physician. Historical: - Allergies: 14:58 Iodine; ss 14:58 Sulfa (Sulfonamide Antibiotics); ss - PMHx: 14:58 Diverticulitis; Gout; ss - PSHx: 14:58 ; Tubal ligation; Tonsillectomy; ss - Immunization history:: Adult Immunizations up to date. - Social history:: Smoking status: Patient/guardian denies using tobacco. - Ebola Screening: : Patient denies exposure to infectious person Patient denies travel to an Ebola-affected area in the 21 days before illness onset. ROS: 23:55 Constitutional: Negative for fever, chills, and weight loss, Eyes: Negative for injury, snw pain, redness, and discharge, ENT: Negative for injury, pain, and discharge, Neck: Negative for injury, pain, and swelling, Cardiovascular: Negative for chest pain, palpitations, and edema, Respiratory: Negative for shortness of breath, cough, wheezing, and pleuritic chest pain, Abdomen/GI: Negative for abdominal pain, nausea, vomiting, diarrhea, and constipation, Back: Negative for injury and pain, : Negative for injury, bleeding, discharge, and swelling, Skin: Negative for injury, rash, and discoloration, Neuro: Negative for headache, weakness, numbness, tingling, and seizure, Psych: Negative for depression, anxiety, suicide ideation, homicidal ideation, and hallucinations. 23:55 MS/extremity: Positive for pain, of the left foot and lateral aspect of left foot. Exam: 22:51 Constitutional: This is a well developed, well nourished patient who is awake, alert, snw and in no acute distress. Head/Face: Normocephalic, atraumatic. Eyes: Pupils equal round and reactive to light, extra-ocular motions intact. Lids and lashes normal. Conjunctiva and sclera are non-icteric and not injected. Cornea within normal limits. Periorbital areas with no swelling, redness, or edema. ENT: Nares patent. No nasal discharge, no septal abnormalities noted. Tympanic membranes are normal and external auditory canals are clear. Oropharynx with no redness, swelling, or masses, exudates, or evidence of obstruction, uvula midline. Mucous membranes moist. Neck: Trachea midline, no thyromegaly or masses palpated, and no cervical lymphadenopathy. Supple, full range of motion without nuchal rigidity, or vertebral point tenderness. No Meningismus. Chest/axilla: Normal chest wall appearance and motion. Nontender with no deformity. No lesions are appreciated. Cardiovascular: Regular rate and rhythm with a normal S1 and S2. No gallops, murmurs, or rubs. Normal PMI, no JVD. No pulse deficits. Respiratory: Lungs have equal breath sounds bilaterally, clear to auscultation and percussion. No rales, rhonchi or wheezes noted. No increased work of breathing, no retractions or nasal flaring. Abdomen/GI: Soft, non-tender, with normal bowel sounds. No distension or tympany. No guarding or rebound. No evidence of tenderness throughout. Back: No spinal tenderness. No costovertebral tenderness. Full range of motion. Skin: Warm, dry with normal turgor. Normal color with no rashes, no lesions, and no evidence of cellulitis. Neuro: Awake and alert, GCS 15, oriented to person, place, time, and situation. Cranial nerves II-XII grossly intact. Motor strength 5/5 in all extremities. Sensory grossly intact. Cerebellar exam normal. Normal gait. Psych: Awake, alert, with orientation to person, place and time. Behavior, mood, and affect are within normal limits. 22:51 Musculoskeletal/extremity: Extremities: grossly normal except: noted in the lateral aspect of left foot and anterior aspect of left ankle: pain, swelling, tenderness, ROM: no acute changes, Circulation is intact in all extremities. Sensation intact. Vital Signs: 14:54 BP 141 / 90; Pulse 83; Resp 16; Temp 98.3(O); Pulse Ox 98% on R/A; Weight 140.61 kg; ss Height 5 ft. 8 in. (172.72 cm); Pain 9/10; 15:47 Pain 6/10; rv 17:36 BP 138 / 86; Pulse 88; Resp 15; Pulse Ox 97% on R/A; rv 14:54 Body Mass Index 47.13 (140.61 kg, 172.72 cm) ss MDM: 15:05 Patient medically screened. snw 22:54 Data reviewed: vital signs, nurses notes. Data interpreted: Pulse oximetry: on room air snw is 97 %. Interpretation: normal. Counseling: I had a detailed discussion with the patient and/or guardian regarding: the historical points, exam findings, and any diagnostic results supporting the discharge/admit diagnosis, radiology results, the need for outpatient follow up, to return to the emergency department if symptoms worsen or persist or if there are any questions or concerns that arise at home. Response to treatment: the patient's symptoms have markedly improved after treatment. Special discussion: Based on the history and exam findings, there is no indication for further emergent testing or inpatient evaluation. I discussed with the patient/guardian the need to see the orthopedic surgeon for further evaluation of the symptoms. I discussed with the patient/guardian the need to see the primary care provider for further evaluation of the symptoms. 06/25 15:11 Order name: US Extremity Venous Unilateral Ltd; Complete Time: 17:14 snw 06/25 16:48 Order name: Post-op shoe; Complete Time: 17:35 snw Administered Medications: 15:32 Drug: fentaNYL (PF) 50 mcg {Note: rass 0.} Route: IM; Site: right deltoid; rv 15:47 Follow up: Pain 6/10 Adult; Response: No adverse reaction; Marked relief of symptoms; rv Pain is decreased 15:48 Follow up: Response: RASS: Alert and Calm (0) rv Disposition: 06/26 07:09 Co-signature as Attending Physician, Jesus Manuel Bueno MD. rn Disposition: 06/25/19 16:49 Discharged to Home. Impression: Gout. - Condition is Stable. - Discharge Instructions: Gout, Low-Purine Diet. - Prescriptions for Tylenol- Codeine #3 300-30 mg Oral Tablet - take 2 tablets by ORAL route every 6 hours As needed; 12 tablet. - Medication Reconciliation Form, Thank You Letter, Antibiotic Education, Prescription Opioid Use, Work release form form. - Follow up: Private Physician; When: 2 - 3 days; Reason: Recheck today's complaints, Continuance of care, Re-evaluation by your physician. Follow up: Emergency Department; When: As needed; Reason: Worsening of condition. Signatures: Dispatcher [employer] EDKS Radha Cook, EDGE [employer]PP[employer]-C ED[employer]PP[employer]-Csnw Jesus Manuel Bueno MD MD rn Smirch, Shelby, RN RN ss Vicente, Ronaldo, RN RN rv Corrections: (The following items were deleted from the chart) 06/25 17:37 16:49 06/25/2019 16:49 Discharged to Home. Impression: Gout. Condition is Stable. Forms rv are Medication Reconciliation Form, Thank You Letter, Antibiotic Education, Prescription Opioid Use. Follow up: Private Physician; When: 2 - 3 days; Reason: Recheck today's complaints, Continuance of care, Re-evaluation by your physician. Follow up: Emergency Department; When: As needed; Reason: Worsening of condition. snw
--- NOTE | 2019-06-25 16:49 | ER ---
Nurse's Notes [facility] Name: Elizabeth Madrigal Age: 58 yrs Sex: Female : 1960 Arrival Date: 06/25/2019 Time: 14:28 Bed 24 Private MD: Diagnosis: Gout Presentation: 06/25 14:54 Presenting complaint: Patient states: swelling and warmth to L foot that began 3 days ss ago. Patient has a history of gout and believes this is a flare up. Transition of care: patient was not received from another setting of care. Onset of symptoms was June 22, 2019. Risk Assessment: Do you want to hurt yourself or someone else? Patient reports no desire to harm self or others. Initial Sepsis Screen: Does the patient meet any 2 criteria? No. Patient's initial sepsis screen is negative. Does the patient have a suspected source of infection? No. Patient's initial sepsis screen is negative. Care prior to arrival: None. 14:54 Method Of Arrival: Ambulatory ss 14:54 Acuity: BRIANNA 3 ss Historical: - Allergies: 14:58 Iodine; ss 14:58 Sulfa (Sulfonamide Antibiotics); ss - PMHx: 14:58 Diverticulitis; Gout; ss - PSHx: 14:58 ; Tubal ligation; Tonsillectomy; ss - Immunization history:: Adult Immunizations up to date. - Social history:: Smoking status: Patient/guardian denies using tobacco. - Ebola Screening: : Patient denies exposure to infectious person Patient denies travel to an Ebola-affected area in the 21 days before illness onset. Screenin:48 Abuse screen: Denies threats or abuse. Denies injuries from another. Nutritional rv screening: No deficits noted. Tuberculosis screening: No symptoms or risk factors identified. Fall Risk None identified. Assessment: 15:20 General: Appears in no apparent distress. comfortable, Behavior is calm, cooperative. rv Pain: Complains of pain in left foot Pain currently is 8 out of 10 on a pain scale. 15:20 Neuro: Level of Consciousness is awake, alert, obeys commands, Oriented to person, rv place, time, situation. Cardiovascular: Patient's skin is warm and dry. Respiratory: Airway is patent. GI: No signs and/or symptoms were reported involving the gastrointestinal system. : No signs and/or symptoms were reported regarding the genitourinary system. EENT: No signs and/or symptoms were reported regarding the EENT system. Derm: No signs and/or symptoms reported regarding the dermatologic system. Skin is intact. Musculoskeletal: Swelling present in left foot Reports pain in left foot. 15:49 Reassessment: Patient appears in no apparent distress at this time. Patient and/or rv family updated on plan of care and expected duration. Pain level reassessed. Patient is alert, oriented x 3, equal unlabored respirations, skin warm/dry/pink. awaiting Ultrasound. Patient states feeling better. Patient states symptoms have improved. Vital Signs: 14:54 BP 141 / 90; Pulse 83; Resp 16; Temp 98.3(O); Pulse Ox 98% on R/A; Weight 140.61 kg; ss Height 5 ft. 8 in. (172.72 cm); Pain 9/10; 15:47 Pain 6/10; rv 17:36 BP 138 / 86; Pulse 88; Resp 15; Pulse Ox 97% on R/A; rv 14:54 Body Mass Index 47.13 (140.61 kg, 172.72 cm) ED Course: 14:28 Patient arrived in ED. as 14:54 Arm band placed on right wrist. ss 14:56 Triage completed. ss 14:58 [facility]C [facility]. snw 14:58 Jesus Manuel Bueno MD is Attending Physician. snw 15:22 Jaylan Richard RN is Primary Nurse. rv 15:49 Patient has correct armband on for positive identification. Bed in low position. Call rv light in reach. Side rails up X 1. Adult w/ patient. Pulse ox on. NIBP on. 17:02 US Extremity Venous Unilateral Ltd In Process Unspecified. EDMS 17:07 Ultrasound completed. Notified CUSTOMER SERVICE ENGINEER/PA radha w prelim. sg3 17:36 No provider procedures requiring assistance completed. Patient did not have IV access rv during this emergency room visit. Administered Medications: 15:32 Drug: fentaNYL (PF) 50 mcg {Note: rass 0.} Route: IM; Site: right deltoid; rv 15:47 Follow up: Pain 6/10 Adult; Response: No adverse reaction; Marked relief of symptoms; rv Pain is decreased 15:48 Follow up: Response: RASS: Alert and Calm (0) rv Outcome: 16:49 Discharge ordered by . vinayak 17:36 Discharged to home via wheelchair, with family. rv 17:36 Condition: good 17:36 Discharge instructions given to patient, family, Instructed on discharge instructions, follow up and referral plans. medication usage, Demonstrated understanding of instructions, follow-up care, medications, Prescriptions given X 1. 17:37 Patient left the ED. rv Signatures: Dispatcher [employer] EDRI Radha Cook, BUTTON PUNCHER-C BUTTON PUNCHER-Meme Edouard Shelby, RN RN Gabi Vicente sg3 Jaylan Richard, RN RN rv
--- NOTE | 2019-06-25 17:10 | RAD REPORT ---
EXAM DESCRIPTION: US - Extremity Venous Uni Ltd - 06/25/2019 5:01 pm CLINICAL HISTORY: SWELLING Leg swelling and edema. COMPARISON: <Comparisons> FINDINGS: Left lower extremity venous system was interrogated with Doppler technique. Normal flow, c ompressibility and augmentation was noted. There is no DVT present. IMPRESSION: No evidence of left lower extremity deep venous thrombosis.
[2019-06-25 20:16] VITALS: TEMP 98.3
[2019-06-25 20:19] VITALS: BP 138/86; O2SAT 97
== END 2019-06-25 17:37 | disposition home or self-care (01) ==
LOC: ER 14:25
DX: M10.9 Gout, unspecified (principal); Z88.2 Allergy status to sulfonamides; Z91.048 Other nonmedicinal substance allergy status
CPT/HCPCS: 93971; 96372; 99284; J3010

== ENCOUNTER 2021-01-23 07:05 | Day surgery (SDC) | payer OTHER ==
[2021-01-23] MEDS ORDERED: Ringers Lactate 1,000 ML IV ONE (07:38)
[2021-01-23] MEDS ORDERED: propofoL 200 MG/20 ML VIAL IV ONE ×2 (09:01)
[2021-01-23] MEDS ORDERED: LIDOCAINE 1% MPF 5 ML VIAL ONE (09:01)
--- NOTE | 2021-01-23 09:02 | ENDO RPT ---
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 TOPICAL ANESTHETIC: none CONSENT: The patient understands the risks and benefits of the procedure and understands that these risks include, but are not limited to: sedation, allergic reaction, infection, perforation and/or bleeding. Alternative means of evaluation and treatment include, among others: physical exam, x-rays, and/or surgical intervention. The patient elects to proceed with this endoscopic procedure. DESCRIPTION OF PROCEDURE: During intra-op preparation period all mechanical medical equipment was checked for proper function. Hand hygiene and appropriate measures for infection prevention was taken. Procedure, possible complications, and alternatives including but not limited to the possibility of bleeding, perforation, tear, infection, sepsis, need for surgery, need for blood transfusion, and anesthesia related complications were explained to the patient. After the risks, benefits and alternatives of the procedure were thoroughly explained, Informed consent was verified, confirmed and timeout was successfully executed by the treatment team. The patient was placed in the left lateral position. The patient was anesthetized with topical anesthesia. Through the anesthetized oropharyngeal area, the scope was passed without any difficulty. The EG-2990i ([id number]) endoscope was introduced through the mouth and advanced to the third portion of the duodenum. Retroflexed views revealed no abnormalities. The gastroscope was then slowly withdrawn and removed. LA Class A esophagitis was found in the lower esophagus. Mild gastritis was found in the antrum. Multiple biopsies were obtained and sent to pathology. Small bowel biopsies obtained with history of iron deficiency anemia. ADVERSE EVENTS: There were no complications. IMPRESSIONS: 1. LA class A esophagitis in the lower esophagus 2. Mild gastritis in the antrum, s/p biopsies 3. Small bowel biopsies obtained with history of iron deficiency anemia RECOMMENDATIONS: 1. await biopsy results 2. acid suppression therapy REPEAT EXAM: Rogelio Rolle Dr eSigned: Rogelio Rolle Dr 01/23/2021 9:02 AM cc: Jared Geronimo CPT CODES: ICD9 CODES: PATIENT NAME: Elizabeth Madrigal MR#: [id number]
--- NOTE | 2021-01-23 09:04 | ENDO RPT ---
[address], [address] EGD PROCEDURE REPORT EXAM DATE: 01/23/2021 PATIENT NAME: Elizabeth Madrigal MR#: [id number] BIRTHDATE: 1960 ATTENDING: Rogelio Rolle Dr STATUS: outpatient ADVENTURE GUIDE: Shani Quinones RN and Rena Anna RN INDICATIONS: The patient is a 60 yr old Female here for an EGD due to iron deficiency anemia, dyspepsia, family history of stomach cancer in father PROCEDURE PERFORMED: EGD with biopsy MEDICATIONS: Per Anesthesia. TOPICAL ANESTHETIC: none CONSENT: The patient understands the risks and benefits of the procedure and understands that these risks include, but are not limited to: sedation, allergic reaction, infection, perforation and/or bleeding. Alternative means of evaluation and treatment include, among others: physical exam, x-rays, and/or surgical intervention. The patient elects to proceed with this endoscopic procedure. DESCRIPTION OF PROCEDURE: During intra-op preparation period all mechanical medical equipment was checked for proper function. Hand hygiene and appropriate measures for infection prevention was taken. Procedure, possible complications, and alternatives including but not limited to the possibility of bleeding, perforation, tear, infection, sepsis, need for surgery, need for blood transfusion, and anesthesia related complications were explained to the patient. After the risks, benefits and alternatives of the procedure were thoroughly explained, Informed consent was verified, confirmed and timeout was successfully executed by the treatment team. The patient was placed in the left lateral position. The patient was anesthetized with topical anesthesia. Through the anesthetized oropharyngeal area, the scope was passed without any difficulty. The EG-2990i ([id number]) endoscope was introduced through the mouth and advanced to the third portion of the duodenum. Retroflexed views revealed no abnormalities. The gastroscope was then slowly withdrawn and removed. LA Class A esophagitis was found in the lower esophagus. Mild gastritis was found in the antrum. Multiple biopsies were obtained and sent to pathology. Small bowel biopsies obtained with history of iron deficiency anemia. ADVERSE EVENTS: There were no complications. IMPRESSIONS: 1. LA class A esophagitis in the lower esophagus 2. Mild gastritis in the antrum, s/p biopsies 3. Small bowel biopsies obtained with history of iron deficiency anemia RECOMMENDATIONS: 1. await biopsy results 2. acid suppression therapy REPEAT EXAM: Rogelio Rolle Dr eSigned: Rogelio Rolle Dr 01/23/2021 9:04 AM Revised: 01/23/2021 9:04 AM cc: Jared Geronimo CPT CODES: ICD9 CODES: PATIENT NAME: Maryann Madrigalyce Tj MR#: [id number]
--- NOTE | 2021-01-23 09:33 | ENDO RPT ---
[address], [address] COLONOSCOPY PROCEDURE REPORT EXAM DATE: 01/23/2021 PATIENT NAME: Elizabeth Madrigal MR #: [id number] BIRTHDATE: 1960 ATTENDING: Rogelio Rolle Dr STATUS: outpatient PSYCHIATRIC ASSISTANT: Shani Quinones RN and Rena Anna RN INDICATIONS: The patient is a 60 yr old Female here for a colonoscopy due to iron deficiency anemia, personal history of colon polyps, change in bowel habits, constipation, diverticulitis, abnormal CT of abdomen, and abdominal pain PROCEDURE PERFORMED: Colonoscopy MEDICATIONS: Per Anesthesia. ESTIMATED BLOOD LOSS: None CONSENT: The patient understands the risks and benefits of the procedure and understands that these risks include, but are not limited to: sedation, allergic reaction, infection, perforation and/or bleeding. Alternative means of evaluation and treatment include, among others: physical exam, x-rays, and/or surgical intervention. The patient elects to proceed with this endoscopic procedure. DESCRIPTION OF PROCEDURE: During intra-op preparation period all mechanical medical equipment was checked for proper function. Hand hygiene and appropriate measures for infection prevention was taken. Procedure, possible complications, alternatives including, but not limited to possibility of bleeding, perforation, tear, infection, sepsis, need for surgery, need for blood transfusion, were explained to the patient. After the risks, benefits and alternatives of the procedure were thoroughly explained, Informed consent was verified, confirmed and timeout was successfully executed by the treatment team. The patient was placed in the left lateral position. A digital rectal exam was performed and revealed no abnormalities of the rectum. After appropriate level of anesthesia, the scope was passed. The EG-2990i ([id number]) and EC-3890Li ([id number]) endoscope was introduced through the anus and advanced to the terminal ileum which was intubated for a short distance. The quality of the prep was good. The instrument was then slowly withdrawn as the colon was fully examined. Scope withdrawal time was 8 minutes. COLON FINDINGS: Mild diverticulosis was noted throughout the entire examined colon. No bleeding was noted from the diverticulosis. Small internal hemorrhoids were found. Retroflexed views revealed small hemorrhoids. The scope was then completely withdrawn from the patient and the procedure terminated. ADVERSE EVENTS: There were no complications. IMPRESSIONS: 1. Mild diverticulosis throughout the entire examined colon 2. Small internal hemorrhoids 3. Intubation to terminal ileum RECOMMENDATIONS: 1. surgery consult for recurrent (5-6) diverticulitis 3. constipation therapy RECALL: Return in 3 year(s) for Colonoscopy. Rogelio Rolle Dr eSigned: Rogelio Rolle Dr 01/23/2021 9:33 AM cc: CPT CODES: ICD9 CODES: PATIENT NAME: Maryann Madrigalycakua BarrJames MR#: [id number]
--- NOTE | 2021-01-23 09:36 | ENDO RPT ---
[address], [address] COLONOSCOPY PROCEDURE REPORT EXAM DATE: 01/23/2021 PATIENT NAME: Elizabeth Madrigal MR #: [id number] BIRTHDATE: 1960 ATTENDING: Rogelio Rolle Dr STATUS: outpatient PLANT SPRAYER: Shani Quinones RN and Rena Anna RN INDICATIONS: The patient is a 60 yr old Female here for a colonoscopy due to iron deficiency anemia, personal history of colon polyps, change in bowel habits, constipation, diverticulitis, abnormal CT of abdomen, and abdominal pain PROCEDURE PERFORMED: Colonoscopy MEDICATIONS: Per Anesthesia. ESTIMATED BLOOD LOSS: None CONSENT: The patient understands the risks and benefits of the procedure and understands that these risks include, but are not limited to: sedation, allergic reaction, infection, perforation and/or bleeding. Alternative means of evaluation and treatment include, among others: physical exam, x-rays, and/or surgical intervention. The patient elects to proceed with this endoscopic procedure. DESCRIPTION OF PROCEDURE: During intra-op preparation period all mechanical medical equipment was checked for proper function. Hand hygiene and appropriate measures for infection prevention was taken. Procedure, possible complications, alternatives including, but not limited to possibility of bleeding, perforation, tear, infection, sepsis, need for surgery, need for blood transfusion, were explained to the patient. After the risks, benefits and alternatives of the procedure were thoroughly explained, Informed consent was verified, confirmed and timeout was successfully executed by the treatment team. The patient was placed in the left lateral position. A digital rectal exam was performed and revealed no abnormalities of the rectum. After appropriate level of anesthesia, the scope was passed. The EG-2990i ([id number]) and EC-3890Li ([id number]) endoscope was introduced through the anus and advanced to the terminal ileum which was intubated for a short distance. The quality of the prep was good. The instrument was then slowly withdrawn as the colon was fully examined. Scope withdrawal time was 8 minutes. COLON FINDINGS: Mild diverticulosis was noted throughout the entire examined colon. No bleeding was noted from the diverticulosis. Small internal hemorrhoids were found. Retroflexed views revealed small hemorrhoids. The scope was then completely withdrawn from the patient and the procedure terminated. ADVERSE EVENTS: There were no complications. IMPRESSIONS: 1. Mild diverticulosis throughout the entire examined colon 2. Small internal hemorrhoids 3. Intubation to terminal ileum RECOMMENDATIONS: 1. surgery consult for recurrent (5-6) diverticulitis 3. constipation therapy RECALL: Return in 3 year(s) for Colonoscopy. Rogelio Rolle Dr eSigned: Rogelio Rolle Dr 01/23/2021 9:35 AM Revised: 01/23/2021 9:35 AM cc: Jared Geronimo M.D. CPT CODES: ICD9 CODES: PATIENT NAME: Elizabeth Madrigal MR#: [id number]
--- NOTE | 2021-01-23 10:41 | RAD REPORT ---
EXAM DESCRIPTION: CT - Abdomen Pelvis Wo Contrast - 01/23/2021 10:13 am CLINICAL HISTORY: Abdominal pain COMPARISON: 2017 TECHNIQUE: Computed axial tomography of the abdomen and pelvis was obtained. IV and oral contrast we re not requested. All CT scans are performed using dose optimization technique as appropriate and may include automated exposure control or mA/KV adjustment according to patient size. FINDINGS: The evaluation of solid organs, vessels, appendix and bowel is limited secondary to the l ack of contrast administration. The liver, spleen, pancreas, adrenals and kidneys appear grossly normal. .There is no evidence of diverticulitis. IMPRESSION: No acute abnormality is displayed.
[2021-01-23 10:55] VITALS: O2SAT 100
[2021-01-23 10:56] VITALS: BP 136/90; TEMP 97
== END 2021-01-23 10:40 | disposition home or self-care (01) ==
LOC: OR 07:05
PROVIDERS: ATTEND Internal Medicine Gastroenterology
PROC: 0DJD8ZZ Inspection of Lower Intestinal Tract, Via Natural or Artificial Opening Endoscopic (ICD-10-PCS; principal; 2021-01-23 08:45)
PROC: 0DB88ZX Excision of Small Intestine, Via Natural or Artificial Opening Endoscopic, Diagnostic (ICD-10-PCS; 2021-01-23 08:45)
DX: D50.9 Iron deficiency anemia, unspecified (principal); K59.00 Constipation, unspecified; K57.92 Diverticulitis of intestine, part unspecified, without perforation or abscess without bleeding; R10.9 Unspecified abdominal pain; K29.50 Unspecified chronic gastritis without bleeding; A04.8 Other specified bacterial intestinal infections; K64.8 Other hemorrhoids; Z86.010 Personal history of colon polyps; Z20.822 Contact with and (suspected) exposure to COVID-19
CPT/HCPCS: 88312; 88305; 74176; 45378; 43239; U0003; J2704 ×2; J7120